=== PATIENT | female | born 1970 | race Caucasian/White ===

== ENCOUNTER 2023-11-26 08:55 | Day surgery (SDC) | payer BC ==
[2023-11-26] MEDS: Lactated Ringers 1,000 ML IV SCH (09:50)
[2023-11-26] MEDS ORDERED: propofoL 50 ML ONE (11:55)
[2023-11-26] MEDS ORDERED: fentaNYL 100 MCG/2 ML SDV ONE (12:00)
== END 2023-11-26 12:41 | disposition home or self-care (01) ==
LOC: MW.SDS 08:55
PROVIDERS: ATTEND Surgery
DX: Z12.11 Encounter for screening for malignant neoplasm of colon (principal); E78.5 Hyperlipidemia, unspecified; Z79.899 Other long term (current) drug therapy
CPT/HCPCS: 45378; J2704; J3010; J7120; 00812